=== PATIENT | male | born 2000 | race Caucasian/White ===

== ENCOUNTER 2018-05-10 22:36 | Emergency (ER) | payer SELFPAY ==
[~2018-05-10] VITALS: Ht 182.9 cm; Wt 136.1 kg
[2018-05-10 22:45] VITALS: Ht 182.9 cm; Wt 136.1 kg
[2018-05-10 23:19] LABS: CALCIUM 9.2 mg/dL (8.5-10.1); CARBON DIOXIDE 25.1 mmol/L (21-32); CHLORIDE SERUM 103 mmol/L (98-107); GFR1 > 60 mL/min; GLUCOSE SERUM 130 mg/dL (74-106); POTASSIUM SERUM 3.7 mmol/L (3.5-5.1); SODIUM SERUM 139 mmol/L (136-145)
[2018-05-10 23:24] LABS: ALBUMIN 3.8 g/dL (3.4-5.0); ALKALINE PHOSPHATASE 120 U/L (46-116); ALT/SGPT 63 U/L (16-63); AST/SGOT 27 U/L (15-37); BASOPHIL % 0.3 % (0-2); BILIRUBIN TOTAL 0.1 mg/dL (0.20-1.00); LIPASE 115 IU/L (73-393); PLATELET COUNT 246 x10^3mcL (130-400); RED CELL DISTRIBUTION WIDTH 14.1 % (11.5-14.5)
[2018-05-11 01:55] LABS: AMPHETAMINE QUAL UR NONE DETECTED (See below)
[2018-05-11 02:42] VITALS: BP 131/72
== END 2018-05-11 02:42 | disposition home or self-care (01) ==
LOC: ED 22:36
PROVIDERS: Emergency Medicine
DX: R11.2 Nausea with vomiting, unspecified (principal); R41.82 Altered mental status, unspecified; T40.7X5A Adverse effect of cannabis (derivatives), initial encounter; Y92.89 Other specified places as the place of occurrence of the external cause
CPT/HCPCS: 87804; J2405; J7030